=== PATIENT | male | born 1965 | race Caucasian/White ===

== ENCOUNTER → 2017-01-20 | Outpatient (CLI) | payer BC ==
[~2017-01-20] MED LIST: AMBIEN10 MG PO; CLONAZEPAM0.5 MG PO; ESCITALOPRAM10 MG PO; LISINOPRIL-HCTZ 20-1 PO; NORCO 325 MG-7.1 TA1 PO; SYNTHROID0.137 MG PO; TOPCARE IBUPRO200 MG PO
== END ==
LOC: LAB 10:31
DX: Z00.00 Encounter for general adult medical examination without abnormal findings (principal); E03.4 Atrophy of thyroid (acquired); I10 Essential (primary) hypertension; Z12.5 Encounter for screening for malignant neoplasm of prostate

== ENCOUNTER → 2018-05-19 | Outpatient (CLI) | payer BC ==
[2014-12-22 16:31] VITALS: BP 149/75
[~2018-05-19] MED LIST changes: +NORVASC 10MG10 MG PO; +ULTRAM50 M1 PO
[2018-05-19 11:00] LABS: EOS # 0.2 (0.04-0.40); EOS % 2.5 % (0.0-4.0); HEMATOCRIT 43.7 % (42.0-52.0); HEMOGLOBIN 14.4 g/dL (13.5-18.0); LYMPH# 2.4 (1.50-4.00); MEAN CELL VOLUME 95 fl (78-100); MEAN CORPUSCULAR HEMOGLOBIN 31 pg (27-31); MEAN CORPUSCULAR HGB CONC 33 g/dL (33-37); MEAN PLATELET VOLUME 10.6 fl (7.4-10.4); MONO # 0.5 (0.20-0.80); NEU # 3.6 (1.40-6.50); PLATELET COUNT 203 K/mm3 (130-400); RED CELL DISTRIBUTION WIDTH 13.3 % (11.5-14.5); WHITE BLOOD COUNT 6.7 K/mm3 (4.8-10.8)
[2018-05-19 11:09] LABS: ALBUMIN 4.3 g/dL (3.5-5.0); BUN/CREATININE RATIO 21.2 (6.0-26.0); CALCIUM 9.2 mg/dL (8.4-10.2); TOTAL BILIRUBIN 1.2 mg/dL (0.2-1.3); TOTAL PROTEIN 7.8 g/dL (6.3-8.2)
[2018-05-19 12:32] LABS: ERYTHROCYTE SEDIMENTATION RATE 11 mm/hr (0-20)
[2018-05-19 23:24] LABS: TESTOSTERONE 385 ng/dL (221-716)
== END ==
LOC: LAB 09:55
PROVIDERS: Internal Medicine
DX: Z00.00 Encounter for general adult medical examination without abnormal findings (principal); Z12.11 Encounter for screening for malignant neoplasm of colon; E03.4 Atrophy of thyroid (acquired); I10 Essential (primary) hypertension

== ENCOUNTER 2018-05-21 10:45 | Emergency (ER) | payer BC ==
[~2018-05-21 10:45] MED LIST changes: -NORVASC 10MG10 MG PO; -ULTRAM50 M1 PO
[2018-05-21 11:50] LABS: HEMATOCRIT 42.6 % (42.0-52.0); HEMOGLOBIN 14.3 g/dL (13.5-18.0); MEAN CELL VOLUME 95 fl (78-100); MEAN CORPUSCULAR HEMOGLOBIN 32 pg (27-31); MEAN CORPUSCULAR HGB CONC 34 g/dL (33-37); MEAN PLATELET VOLUME 10.3 fl (7.4-10.4); PLATELET COUNT 210 K/mm3 (130-400); RED BLOOD COUNT 4.49 M/mm3 (4.20-5.60); RED CELL DISTRIBUTION WIDTH 13.2 % (11.5-14.5)
[2018-05-21 12:03] LABS: ALBUMIN 4.1 g/dL (3.5-5.0); BUN/CREATININE RATIO 23.4 (6.0-26.0); CALCIUM 9.5 mg/dL (8.4-10.2); TOTAL BILIRUBIN 1.1 mg/dL (0.2-1.3); TOTAL PROTEIN 7.5 g/dL (6.3-8.2)
[2018-05-21 12:10] LABS: CKMB ISOENZYME 3.3 ng/mL (0.6-3.5)
[2018-05-21 12:15] LABS: LYMPHOCYTE 41 % (20-51); MONOCYTE 11 % (3-10); NEUTROPHILS 44 % (42-75)
[2018-05-21 12:16] LABS: TROPONIN-I < 0.03 ng/mL (0.00-0.06)
[2018-05-21 12:21] LABS: D-DIMER 0.27 mg/L FEU (0.15-0.50)
[2018-05-21 12:44] LABS: POTASSIUM 3.9 mmol/L (3.6-5.0)
[2018-05-21] MEDS ORDERED: NORVASC 10MG10 MG PO (13:02)
[2018-05-21] MEDS ORDERED: ULTRAM50 M1 PO (13:02)
[2018-05-21 13:16] VITALS: BP 202/129
== END 2018-05-21 13:18 | disposition home or self-care (01) ==
LOC: ED 10:45
PROVIDERS: Physician Assistant
DX: I16.0 Hypertensive urgency (principal); M79.1 Myalgia; E66.01 Morbid (severe) obesity due to excess calories; Z79.899 Other long term (current) drug therapy; E03.9 Hypothyroidism, unspecified; F41.9 Anxiety disorder, unspecified

== ENCOUNTER → 2018-06-01 | Day surgery (SDC) | payer BC ==
[2018-05-21 13:16] VITALS: BP 202/129
[~2018-06-01] MED LIST changes: +NORVASC 10MG10 MG PO; +ULTRAM50 M1 PO
== END ==
LOC: MSO 09:08
DX: R13.10 Dysphagia, unspecified (principal); Z12.11 Encounter for screening for malignant neoplasm of colon
CPT/HCPCS: 00813; J2704; J7120

== ENCOUNTER → 2019-12-21 | Outpatient (CLI) | payer BC ==
[2018-10-29 15:14] VITALS: BP 176/109
[~2019-12-21] MED LIST changes: +DICLOFENAC SOD100 M1 PO; +KLONOPIN 0.5MG0.5 MG PO; +NORCO 325 MG-51 TA1 PO; +ZOFRAN4 M2 PO
[2019-12-21 10:56] LABS: EOS # 0.2 (0.04-0.40); EOS % 3.2 % (0.0-4.0); HEMATOCRIT 43.7 % (42.0-52.0); HEMOGLOBIN 14.3 g/dL (13.5-18.0); LYMPH# 2.4 (1.50-4.00); MEAN CELL VOLUME 96 fl (78-100); MEAN CORPUSCULAR HEMOGLOBIN 31 pg (27-31); MEAN CORPUSCULAR HGB CONC 33 g/dL (33-37); MONO # 0.5 (0.20-0.80); NEU # 3.8 (1.40-6.50); PLATELET COUNT 219 K/mm3 (130-400); RED BLOOD COUNT 4.56 M/mm3 (4.20-5.60); RED CELL DISTRIBUTION WIDTH 13.1 % (11.5-14.5); WHITE BLOOD COUNT 6.9 K/mm3 (4.8-10.8)
[2019-12-21 11:24] LABS: POTASSIUM 3.9 mmol/L (3.5-5.1)
[2019-12-21 11:25] LABS: ALBUMIN 4.6 g/dL (3.5-5.0)
[2019-12-21 11:26] LABS: CALCIUM 9.4 mg/dL (8.3-10.5)
[2019-12-21 11:27] LABS: TOTAL PROTEIN 7.7 g/dL (6.4-8.3)
[2019-12-21 11:29] LABS: TOTAL BILIRUBIN 1.2 mg/dL (0.2-1.2)
[2019-12-21 12:04] LABS: ERYTHROCYTE SEDIMENTATION RATE 9 mm/hr (0-20)
[2019-12-21 22:27] LABS: TESTOSTERONE 365 ng/dL (221-716)
== END ==
LOC: LAB 10:30
PROVIDERS: Internal Medicine
DX: Z00.00 Encounter for general adult medical examination without abnormal findings (principal); Z12.5 Encounter for screening for malignant neoplasm of prostate; Z12.11 Encounter for screening for malignant neoplasm of colon; I10 Essential (primary) hypertension; E03.9 Hypothyroidism, unspecified

== ENCOUNTER 2020-11-02 09:00 | Outpatient (RCR) | payer BC ==
[2018-10-29 15:14] VITALS: BP 176/109
== END 2020-11-20 | disposition home or self-care (01) ==
LOC: PT
DX: M76.62 Achilles tendinitis, left leg (principal)

== ENCOUNTER → 2021-05-07 | Outpatient (CLI) | payer BC ==
[2021-05-07 11:04] LABS: BASO # 0.03 (0.02-0.10); EOS # 0.26 (0.04-0.40); HEMATOCRIT 44.5 % (42.0-52.0); HEMOGLOBIN 14.9 g/dL (13.5-18.0); LYMPH# 2.38 (1.50-4.00); MEAN CELL VOLUME 96 fl (78-100); MEAN CORPUSCULAR HEMOGLOBIN 32 pg (27-31); MEAN CORPUSCULAR HGB CONC 34 g/dL (33-37); MEAN PLATELET VOLUME 10.1 fl (7.4-10.4); MONO # 0.42 (0.20-0.80); NEU # 3.35 (1.40-6.50); PLATELET COUNT 198 K/mm3 (130-400); RED BLOOD COUNT 4.65 M/mm3 (4.20-5.60); RED CELL DISTRIBUTION WIDTH 12.9 % (11.5-14.5); WHITE BLOOD COUNT 6.5 K/mm3 (4.8-10.8)
[2021-05-07 11:26] LABS: ALBUMIN 4.3 g/dL (3.5-5.0); POTASSIUM 4.1 mmol/L (3.5-5.1)
[2021-05-07 11:27] LABS: CALCIUM 9.5 mg/dL (8.3-10.5)
[2021-05-07 11:28] LABS: TOTAL PROTEIN 7.5 g/dL (6.4-8.3)
[2021-05-07 11:30] LABS: TOTAL BILIRUBIN 1.2 mg/dL (0.2-1.2)
[2021-05-07 11:35] LABS: MAGNESIUM 1.97 mg/dL (1.60-2.60)
[2021-05-07 13:36] LABS: ERYTHROCYTE SEDIMENTATION RATE 12 mm/hr (0-20)
== END ==
LOC: LAB 09:41
PROVIDERS: Internal Medicine
DX: Z00.00 Encounter for general adult medical examination without abnormal findings (principal); Z12.5 Encounter for screening for malignant neoplasm of prostate; Z12.11 Encounter for screening for malignant neoplasm of colon; K90.9 Intestinal malabsorption, unspecified

== ENCOUNTER → 2022-06-17 | Outpatient (CLI) | payer BC ==
[2022-06-17 15:50] LABS: BASO # 0.04 K/mm3 (0.02-0.10); EOS # 0.19 K/mm3 (0.04-0.40); EOS % 2.6 % (0.0-4.0); HEMATOCRIT 44.9 % (42.0-52.0); HEMOGLOBIN 14.9 g/dL (13.5-18.0); LYMPH# 2.45 K/mm3 (1.50-4.00); MEAN CELL VOLUME 97 fl (78-100); MEAN CORPUSCULAR HEMOGLOBIN 32 pg (27-31); MEAN CORPUSCULAR HGB CONC 33 g/dL (33-37); MEAN PLATELET VOLUME 9.5 fl (7.4-10.4); MONO # 0.64 K/mm3 (0.20-0.80); NEU # 4.03 K/mm3 (1.40-6.50); PLATELET COUNT 220 K/mm3 (130-400); RED BLOOD COUNT 4.64 M/mm3 (4.20-5.60); RED CELL DISTRIBUTION WIDTH 12.7 % (11.5-14.5); WHITE BLOOD COUNT 7.4 K/mm3 (4.8-10.8)
[2022-06-17 15:59] LABS: ALBUMIN 4.4 g/dL (3.5-5.0)
[2022-06-17 16:01] LABS: TOTAL PROTEIN 7.5 g/dL (6.4-8.3)
[2022-06-17 16:03] LABS: TOTAL BILIRUBIN 1.2 mg/dL (0.2-1.2)
[2022-06-17 16:08] LABS: MAGNESIUM 2.05 mg/dL (1.60-2.60)
[2022-06-17 17:40] LABS: ERYTHROCYTE SEDIMENTATION RATE 13 mm/hr (0-20)
[2022-06-17 21:56] LABS: TESTOSTERONE 298 ng/dL (221-716)
== END ==
LOC: LAB 15:22
PROVIDERS: Internal Medicine
DX: Z00.00 Encounter for general adult medical examination without abnormal findings (principal); Z12.5 Encounter for screening for malignant neoplasm of prostate; Z12.11 Encounter for screening for malignant neoplasm of colon; G47.33 Obstructive sleep apnea (adult) (pediatric); R07.89 Other chest pain

== ENCOUNTER → 2024-03-18 | Outpatient (CLI) | payer BC ==
[~2024-03-18] MED LIST changes: +CYCLOBENZAPRINE10 M1 PO; +OXYCODONE HYDROC5 M1 PO
[2024-03-18 11:18] LABS: BASO # 0.03 K/mm3 (0.02-0.10); EOS # 0.16 K/mm3 (0.04-0.40); EOS % 2.3 % (0.0-4.0); HEMATOCRIT 45.2 % (42.0-52.0); LYMPH# 2.44 K/mm3 (1.50-4.00); MEAN CELL VOLUME 97 fl (78-100); MEAN CORPUSCULAR HEMOGLOBIN 32 pg (27-31); MEAN CORPUSCULAR HGB CONC 33 g/dL (33-37); MEAN PLATELET VOLUME 9.6 fl (7.4-10.4); MONO # 0.48 K/mm3 (0.20-0.80); NEU # 3.74 K/mm3 (1.40-6.50); PLATELET COUNT 226 K/mm3 (130-400); RED BLOOD COUNT 4.64 M/mm3 (4.20-5.60); RED CELL DISTRIBUTION WIDTH 12.7 % (11.5-14.5); WHITE BLOOD COUNT 6.9 K/mm3 (4.8-10.8)
[2024-03-18 11:23] LABS: ALBUMIN 4.3 g/dL (3.5-5.0)
[2024-03-18 11:24] LABS: CALCIUM 10.4 mg/dL (8.3-10.5)
[2024-03-18 11:25] LABS: TOTAL PROTEIN 7.3 g/dL (6.4-8.3)
[2024-03-18 11:27] LABS: TOTAL BILIRUBIN 1.3 mg/dL (0.2-1.2)
[2024-03-18 11:32] LABS: MAGNESIUM 1.93 mg/dL (1.60-2.60)
== END ==
LOC: LAB 10:16
PROVIDERS: Internal Medicine
DX: E78.2 Mixed hyperlipidemia (principal); I10 Essential (primary) hypertension; K90.9 Intestinal malabsorption, unspecified

== ENCOUNTER 2024-05-30 18:12 | Emergency (ER) | payer BC ==
[~2024-05-30] VITALS: Ht 185.4 cm; Wt 181.8 kg
[2024-05-30] MEDS ORDERED: LEVOTHYROXIN0.137 MG PO (18:19)
[2024-05-30] MEDS ORDERED: HYDROCHLOROTHIA1 T15 PO (18:20)
[2024-05-30] MEDS ORDERED: TOPIRAMATE25 MG PO (18:21)
[2024-05-30 18:45] LABS: BASO # 0.03 K/mm3 (0.02-0.10); EOS # 0.17 K/mm3 (0.04-0.40); EOS % 2.6 % (0.0-4.0); HEMATOCRIT 42.2 % (42.0-52.0); HEMOGLOBIN 14.6 g/dL (13.5-18.0); LYMPH# 2.57 K/mm3 (1.50-4.00); MEAN CELL VOLUME 97 fl (78-100); MEAN CORPUSCULAR HEMOGLOBIN 34 pg (27-31); MEAN CORPUSCULAR HGB CONC 35 g/dL (33-37); MEAN PLATELET VOLUME 9.5 fl (7.4-10.4); MONO # 0.36 K/mm3 (0.20-0.80); NEU # 3.32 K/mm3 (1.40-6.50); PLATELET COUNT 192 K/mm3 (130-400); RED BLOOD COUNT 4.36 M/mm3 (4.20-5.60); RED CELL DISTRIBUTION WIDTH 12.8 % (11.5-14.5); WHITE BLOOD COUNT 6.5 K/mm3 (4.8-10.8)
[2024-05-30 18:54] LABS: SODIUM 139 mmol/L (136-145)
[2024-05-30 18:55] LABS: CALCIUM 10.1 mg/dL (8.3-10.5)
[2024-05-30 18:56] LABS: GLUCOSE 129 mg/dL (75-110); TOTAL PROTEIN 6.6 g/dL (6.4-8.3)
[2024-05-30 18:57] LABS: CARBON DIOXIDE 24 mmol/L (22-29)
[2024-05-30 18:58] LABS: TOTAL BILIRUBIN 0.8 mg/dL (0.2-1.2)
[2024-05-30 19:01] LABS: AST-SGOT 26 U/L (5-34)
[2024-05-30 19:03] LABS: ALT/SGPT 32 U/L (0-55)
[2024-05-30 19:09] LABS: TROPONIN-I < 0.030 ng/mL (0.00-0.033)
[2024-05-30 21:04] VITALS: BP 120/59
== END 2024-05-30 21:07 | disposition home or self-care (01) ==
LOC: ED 18:12
PROVIDERS: Physician Assistant
DX: R07.89 Other chest pain (principal)

== ENCOUNTER → 2024-06-30 | Outpatient (CLI) | payer BC ==
[~2024-06-30] MED LIST changes: +HYDROCHLOROTHIA1 T15 PO; +LEVOTHYROXIN0.137 MG PO; +TOPIRAMATE25 MG PO
== END ==
LOC: LAB 08:13
DX: E03.4 Atrophy of thyroid (acquired) (principal)

== ENCOUNTER → 2024-07-27 | Outpatient (CLI) | payer BC | LOC: LAB 09:23 | DX: E03.4 Atrophy of thyroid (acquired) (principal) ==

== ENCOUNTER → 2024-09-09 | Outpatient (CLI) | payer BC | LOC: LAB 09:58 | DX: E03.4 Atrophy of thyroid (acquired) (principal) ==